=== PATIENT | male | born 1950 | race African-American/Black ===

== ENCOUNTER 2021-05-22 05:48 | Day surgery (SDC) | payer MEDICARE ==
--- NOTE | 2021-05-17 10:27 | Anesthesia Consultation ---
Anesthesia Consult and Med Hx Date of service: 05/22/21 - Airway Anesthetic Teeth Evaluation: Dentures, Edentulous ROM Head & Neck: Adequate Mental/Hyoid Distance: Adequate Mallampati Class: Class II Intubation Access Assessment: Good - Pre-Operative Health Status ASA Pre-Surgery Classification: ASA2 Proposed Anesthetic Plan: General - Pulmonary Hx Smoking: No Hx Respiratory Symptoms: No Hx Sleep Apnea: No (JAYNA PRE SCREEN LOW RISK) - Cardiovascular System Hx Hypertension: No - Central Nervous System Hx Back Pain: Yes (NECK PAIN) Hx Psychiatric Problems: No - Hematic Hx Anemia: No - Other Systems Hx Cancer: No Hx Obesity: No - Additional Comments Anesthesia Medical History Comments: Nepali speaking only; used language line
[2021-05-17 10:38] LABS: Hematocrit 44.5 % (35.5-45.6); Hemoglobin 14.4 gm/dl (11.8-15.2); Mean Corpuscular HGB Conc 32 % (32-34); Mean Corpuscular Volume 91 fl (84-94); Platelet Count 252 K/mm3 (140-440); Red Blood Count 4.88 M/mm3 (3.65-5.03); Red Cell Distribution Width 13.2 % (13.2-15.2)
[2021-05-17 11:00] LABS: BUN/Creatinine Ratio 35; Blood Urea Nitrogen 21 mg/dL (9-20); Hemolysis Index 6
--- NOTE | 2021-05-18 09:03 | Electrocardiograph Report ---
[facility] Test Date: 2021-05-17 Test Time: 09:57:16 Pat Name: EVELIA PRAJAPATI Department: Room: Gender: M Insole Tacker: CARYN : 1950 Requested By: NALDO VILLARREAL Order Number: [id number] Reading MD: Evert Casarez Measurements Intervals [place] Rate: 71 P: 67 TN: 156 QRS: 29 QRSD: 96 T: 68 QT: 397 QTc: 432 Interpretive Statements Sinus rhythm Probable left atrial enlargement No previous ECG available for comparison Electronically Signed On 05-18-2021 9:02:56 EST by Evert Casarez
[~2021-05-22 05:48] MED LIST: GABAPENTIN 100 MG CAP PO SCH
[2021-05-22] MEDS ORDERED: CELECOXIB 200 MG CAP PO NR (06:00)
[2021-05-22] MEDS ORDERED: MIDAZOLAM 2 MG/2 ML INJ IV NR (06:00)
[2021-05-22] MEDS ORDERED: GABAPENTIN 300 MG CAP PO NR ×2 (06:00)
[2021-05-22] MEDS ORDERED: LACTATED RINGERS 1,000 ML IV SCH (06:00)
[2021-05-22] MEDS ORDERED: ACETAMINOPHEN 325 MG TAB PO SCH (06:00)
[2021-05-22] MEDS ORDERED: GABAPENTIN 100 MG CAP PO SCH (06:00)
[2021-05-22] MEDS ORDERED: MAGNESIUM OXIDE 400 MG TAB PO ONE (06:00)
[2021-05-22] MEDS ORDERED: BACTERIOSTATIC SODIUM CHLORIDE 0.9% 30 ML VIAL INFILTRATI ONE (06:27)
[2021-05-22] MEDS ORDERED: LIDOCAINE (1%) 10 MG/1 ML VIAL 20 ML MDV ONE (07:15)
[2021-05-22] MEDS ORDERED: BUPIVACAINE/PF (0.5%) 5 MG/1 ML 30 ML VIAL INFILTRATI ONE ×2 (07:15→08:43)
[2021-05-22] MEDS ORDERED: propofoL 200 MG/20 ML VIAL IV ONE (07:17)
[2021-05-22] MEDS ORDERED: ROCURONIUM 50 MG/5 ML INJ IV ONE (07:17)
[2021-05-22] MEDS ORDERED: LIDOCAINE MPF (2%) 20 MG/1 ML VIAL 5 ML ONE (07:17)
[2021-05-22] MEDS ORDERED: ONDANSETRON 4 MG/2 ML INJ ONE (07:17)
[2021-05-22] MEDS ORDERED: fentaNYL 100 MCG/2 ML INJ ONE (07:17)
[2021-05-22] MEDS ORDERED: KETOROLAC 30 MG/1 ML INJ ONE (07:18)
[2021-05-22] MEDS ORDERED: KETAMINE/STERILE WATER 50 MG/ML SYRINGE ONE (07:18)
[2021-05-22] MEDS ORDERED: dexAMETHasone 20 MG/5 ML VIAL ONE (07:18)
--- NOTE | 2021-05-22 07:34 | Anesthesia Day of Surgery ---
Anesthesia Day of Surgery - Day of Surgery Patient Examined: Yes Patient H&P Reviewed: Yes Patient is NPO: Yes
[2021-05-22] MEDS ORDERED: MIDAZOLAM 2 MG/2 ML INJ ONE (07:48)
[2021-05-22] MEDS ORDERED: HYDROcodone/ACETAMINOPHEN 5-325 MG TAB PO PRN (08:00)
[2021-05-22] MEDS ORDERED: ceFAZolin/Water 2 GM/20 ML 2 GM/20 ML SYRINGE IV NR (08:00)
[2021-05-22] MEDS ORDERED: ONDANSETRON 4 MG/2 ML INJ IV PRN (08:00)
[2021-05-22] MEDS ORDERED: HYDROmorphone 1 MG/1 ML INJ IV PRN (08:00)
[2021-05-22] MEDS ORDERED: ePHEDrine SULFATE 50 MG/1 ML INJ ONE (08:06)
[2021-05-22] MEDS ORDERED: LIDOCAINE (1%) 10 MG/1 ML VIAL 20 ML MDV INFILTRATI ONE (08:44)
[2021-05-22] MEDS ORDERED: SODIUM CHLORIDE 0.9% IRR 1,500 ML BOTTLE IR ONE (08:44)
--- NOTE | 2021-05-22 10:40 | Short Stay Summary ---
Short Stay Documentation Date of service: 05/22/21 - History Principal diagnosis: bilateral inguinal hernia H&P: obtained from office - Allergies and Medications Current Medications: Allergies No Known Allergies Allergy (Verified 05/15/21 14:07) Home Medications Medication Instructions Recorded Confirmed Last Taken Type Ascorbic Acid [Vitamin C] 1,000 mg PO DAILY 05/15/21 05/15/21 05/21/21 History Cholecalciferol (Vitamin D3) 2,000 unit PO QDAY 05/15/21 05/15/21 05/21/21 History [Vitamin D3 2,000 UNIT CAP] [place]-3 Fatty Acids/Fish Oil [Fish 1 each PO DAILY 05/15/21 05/15/21 05/21/21 H istory Oil 1,000 mg Capsule] Tamsulosin [Flomax] 0.4 mg PO QDAY 05/15/21 05/15/21 05/21/21 History Vitamin B Complex [Balanced B-50] 1 each PO DAILY 05/15/21 05/15/21 05/21/21 History Active Medications Acetaminophen (Acetaminophen 325 Mg Tab) 650 mg PO ONCE GLENNY Stop: 05/22/21 23:01 Last Admin: 05/22/21 06:57 Dose: 650 mg Documented by: Hydrocodone Bitart/Acetaminophen (Hydrocodone/Acetaminophen 5-325 Mg Tab) 2 each PO ONCE PRN PRN Reason: Pain, Moderate (4-6) Stop: 05/22/21 18:00 Gabapentin (Gabapentin 100 Mg Cap) 100 mg PO PREOP GLENNY Stop: 05/22/21 23:59 Last Admin: 05/22/21 06:57 Dose: 100 mg Documented by: Hydromorphone HCl (Hydromorphone 1 Mg/1 Ml Inj) 0.5 mg IV Q10MIN PRN PRN Reason: Pain , Severe (7-10) Stop: 05/22/21 17:00 Cefazolin Sodium (Ancef/Sterile Water 2 Gm/20 Ml) 2 gm in 20 mls @ 80 mls/hr IV PREOP NR; Protocol Stop: 05/22/21 23:59 Lactated Ringer's (Lactated Ringers) 1,000 mls @ 100 mls/hr IV DIRECT GLENNY Last Admin: 05/22/21 06:50 Dose: 100 mls/hr Documented by: Ondansetron HCl (Ondansetron 4 Mg/2 Ml Inj) 4 mg IV ONCE PRN PRN Reason: Nausea And Vomiting Stop: 05/22/21 17:00 - Brief post op/procedure progress note Date of procedure: 05/22/21 Pre-op diagnosis: bilateral inguinal hernia Post-op diagnosis: same Procedure: robotic assisted bilateral inguinal hernia repair with mesh, b/l ilioinguinal nerve block Anesthesia: GETA, local, other (b/l ilioinguinal nerve block) Findings: Large direct bilateral inguinal hernias - left side containing unobstructed small bowel which was easily reduced Surgeon: NALDO VILLARREAL Planer Setter: ARIELLA FERREIRA Estimated blood loss: minimal Pathology: none Condition: stable - Hospital course Hospital course: Pt observed in PACU and discharged to home in stable condition - Disposition Condition at discharge: Good Disposition: 01 HOME / SELF CARE / HOMELESS Short Stay Discharge Plan Activity: other (NO HEAVY LIFTING OF GREATER THAN 15 LBS FOR NEXT 6 WEEKS) Diet: regular Wound: open to air, per your surgeon's advice Additional Instructions: SEE PRINTED DISCHARGE INSTRUCTIONS Follow up with: ECHO EPSTEIN MD [Primary Care Provider] - 7 Days NALDO VILLARREAL DO [Staff Physician] - 14 Days Prescriptions: Gabapentin 200 mg PO BID #6 capsule Ibuprofen [Motrin 800 MG tab] 800 mg PO Q8HR PRN #30 tablet PRN Reason: Pain, Moderate (4-6) HYDROcodone/APAP 5-325 [[place] 5-325 mg TAB] 1 each PO Q6H PRN #20 tablet PRN Reason: Pain , Severe (7-10)
[2021-05-22] MEDS ORDERED: TAMSULOSIN 0.4 MG CAP PO SCH (13:00)
--- NOTE | 2021-05-22 13:00 | Post Anesthesia Evaluation ---
- Post Anesthesia Evaluation Patient Participated: Yes Airway Patent: Yes Stable Respiratory Function: Yes Nausea/Vomiting: No Temp > 96.8F: Yes Pain Manageable: Yes Adequeate Hydration: Yes Anesthesia Complications: No
--- NOTE | 2021-05-22 14:34 | Operative Report ---
Operative Report Operative Report: Date of procedure: 05/22/21 Pre-op diagnosis: bilateral inguinal hernia Post-op diagnosis: same Procedure: robotic assisted bilateral inguinal hernia repair with mesh, b/l ilioinguinal nerve block Anesthesia: GETA, local, other (b/l ilioinguinal nerve block) Findings: Large direct bilateral inguinal hernias - left side containing unobstructed small bowel which was easily reduced Surgeon: NALDO VILLARREAL Research Mechanic: ARIELLA FERREIRA Estimated blood loss: minimal Pathology: none Condition: stable Hospital course: Pt observed in PACU and discharged to home in stable condition HPI and indication: Patient is a 70-year-old male who was referred to the surgery clinic for a bulge in the right groin. He was found to have a bilateral reducible inguinal hernias on physical exam. He had a history of primary open right inguinal hernia repair 50 years prior. It was recommended that the hernias be repaired. I discussed all risk, benefits, alternatives to repair with the patient and questions were answered using the Isoflux repairer controller tester line. Consent obtained for robotic assisted bilateral inguinal hernia repair with mesh, possible open. Procedure in detail: Patient was identified in the preoperative area, take back to operating room placed on operative table in supine position. After anesthesia was induced both arms were tucked and all bony prominences padded appropriately. A Mims catheter was sterilely placed by the circulating nurse. The abdomen and b/l groins were then prepped and draped in usual sterile fashion and a timeout performed. Local anesthetic was infiltrated to skin at the intended incision sites. A supraumbilical incision was made through which a Veress needle was inserted. Veress needle positioning was confirmed using saline drop test and the abdomen insufflated to 15 mmHg. Once the abdomen was insufflated, the Veress needle was removed and a 5 mm Optiview trocar was placed as incision. The abdomen is inspected there was no underlying injury to any of the abdominal structures. Patient was placed in Trendelenburg and the pelvis examined. There were bilateral inguinal hernias. There was unobstructed small bowel in the left inguinal hernia which was gently reduced with external pressure. At this point, an 8 mm right upper quadrant and left upper quadrant robotic trocars were then placed under direct visualization. The 5 mm supraumbilical trocar was removed and replaced with a 12 mm balloon trocar under direct visualization. A Ray-Waldo was placed into the abdomen. The robot was then docked. A fenestrated bipolar was placed into arm #2 and a monopolar scissor in arm #1. The surgeon was then transferred to the console. First, I created a left sided preperitoneal flap. The peritoneum was scored approximately 5 to 6 cm from the hernia defect. The peritoneum was then incised from the midline to the ASIS. The preperitoneal flap was then developed in an avascular plane. I first defined the medial margin by dissecting to the pubic tubercle. The pubic tubercle was cleared of overlying fatty tissue using blunt dissection. I then created the lateral margin in a similar fashion. Great care was taken to avoid injury to any nerves. There was a direct inguinal hernia and the hernia sac was gently reduced using blunt dissection and transecting cremasteric fibers with electrocautery. During the dissection, the cord structures were identified and protected. The cord structures and vas deferens were visualized throughout the entire dissection. Once the hernia sac was completely reduced, the peritoneal flap was checked for hemostasis. Any additional cremasteric fibers that were were tenting up the peritoneum were divided. Hemostasis was carefully ensured. The right direct inguinal hernia was dissected in the same fashion as the left. The hernia sac was very thin and multiple defects were created during reduction. The peritoneal flaps were connected and one large flap created. The left-sided hernia was repaired with a left large 3D max mesh on the right was repaired with a large right 3D max mesh. The mesh was overlapped at the medial border and sutured to the pubic tubercle using 2-0 Vicryl interrupted stitches. The lateral portions of the mesh were sutured to the anterior lateral abdominal wall using 2-0 Vicryl interrupted sutures. The meshes was seen to lay flat in the pocket with excellent coverage. An 18F angiocath was inserted through the abdominal wall into the lateral portion of the right flap. The peritoneum was then reapproximated using 3-0 running V-Loc stitch x2. The defects in the peritoneum were approximated using 3-0 vloc running stitch. The entirety of the mesh was covered with peritoneum. The robot was then undocked and the surgeon scrubbed back in. The remainder of the case was performed laparoscopically. All sharp materials along with a Ray-Waldo were removed from the abdomen under direct visualization. The 12 mm port was removed and the fascia closed using interrupted 0 Vicryl stitch. The remaining ports were removed and any scrotal air evacuated through the angiocath. Skin incisions were once again infiltrated with local anesthetic. Bilateral ilioinguinal nerve blocks was also performed with 5 cc of local anesthetic each. The skin incisions were approximated with 4-0 Monocryl subcuticular stitches and skin glue. At the end of the case all sponge, instrument, sharp counts were correct x2. Patient was awoken from anesthesia and Mims catheter removed. Both testicles were palpated in the scrotum in anatomic position. The patient was taken to PACU in stable condition.
[2021-05-22 17:08] VITALS: BP 130/71
== END 2021-05-22 05:49 | disposition home or self-care (01) ==
LOC: OR 05:48
PROVIDERS: ATTEND Surgery
DX: K40.20 Bilateral inguinal hernia, without obstruction or gangrene, not specified as recurrent (principal); N40.0 Benign prostatic hyperplasia without lower urinary tract symptoms; Z79.899 Other long term (current) drug therapy; Z98.890 Other specified postprocedural states; Z20.822 Contact with and (suspected) exposure to COVID-19
CPT/HCPCS: 36415; 49650; 80048; 85027; 93005; C1781; J0690; J1100; J1885; J2250; J2405; J2704; J3010; J3490; J7120; U0003

== ENCOUNTER 2021-07-02 09:52 | Outpatient (CLI) | payer MEDICARE ==
--- NOTE | 2021-07-02 13:41 | Vascular Lab Report ---
DUPLEX DOPPLER LOWER EXTREMITY VEINS, BILATERAL INDICATION: R22.43 LOCALIZED SWELLING MASS/LUMP LOWER LIMB BILATERAL. TECHNIQUE: Duplex doppler imaging was performed through the veins of both lower extremities using ve nous compression and other maneuvers. COMPARISON: No relevant prior imaging study available. FINDINGS: Right Common femoral vein: Negative. Right Superficial femoral vein: Negative. Right Popliteal vein: Negative. Right Calf veins: Negative. Left Common femoral vein: Negative. Left Superficial femoral vein: Negative. Left Popliteal vein: Negative. Left Calf veins: Negative. Additional findings: None. IMPRESSION: No sonographic evidence for DVT in either lower extremity. Signer Name: Eduardo Sarmiento Jr, MD Signed: 07/02/2021 1:37 PM Workstation Name: [id number]
== END 2021-07-02 09:53 | disposition home or self-care (01) ==
LOC: VAS 09:52
PROVIDERS: ATTEND Surgery
DX: R22.43 Localized swelling, mass and lump, lower limb, bilateral (principal)
CPT/HCPCS: 93970

== ENCOUNTER 2021-07-04 11:47 | Outpatient (CLI) | payer MEDICARE ==
--- NOTE | 2021-07-04 13:35 | Cat Scan Report ---
CT ABDOMEN AND PELVIS WITHOUT CONTRAST HISTORY: INTRA-ABDOMINAL PELVIC SWELLING. COMPARISON: None. TECHNIQUE: Helical CT images of the abdomen and pelvis were obtained without administration of intrav enous contrast. Sagittal and coronal reformatted images were reviewed. All CT scans at this location are performed using CT dose reduction for ALARA by means of automated exposure control. FINDINGS: Abdomen/pelvis: The bladder is markedly distended. No bladder filling defect or wall abnormality is detected. The prostate gland is enlarged measuring up to 6.2 cm in diameter. Bladder outlet obstructi on is suspected. There is mild to moderate bilateral hydronephrosis. No focal renal lesion or nephrol ithiasis. The liver, biliary system, pancreas, spleen, adrenal glands and bowel loops are unremarkable on nonco ntrast CT. The aorta is ectatic with scattered calcifications. No aneurysm. No adenopathy, free fluid or free air. There are rounded fluid collections in both inguinal regions measuring up to 4 cm in diameter. This a ppears to represent postoperative seromas from pre-peritoneal hernia repairs. Lungs/bones: The lung bases are clear. Normal heart size. There is moderate levocurvature of the lum bar spine with multilevel degenerative changes. IMPRESSION: Bladder outlet obstruction with bilateral hydronephrosis. This is likely secondary to an enlarged pro state gland. Bilateral inguinal seromas as described above. These findings were discussed with Dr. Martin at 1320 hours Eastern standard time. Signer Name: Eduardo Sarmiento Jr, MD Signed: 07/04/2021 1:31 PM Workstation Name: [id number]
== END 2021-07-04 11:48 | disposition home or self-care (01) ==
LOC: CT 11:47
PROVIDERS: ATTEND Surgery
DX: N40.0 Benign prostatic hyperplasia without lower urinary tract symptoms (principal); R19.00 Intra-abdominal and pelvic swelling, mass and lump, unspecified site; N13.30 Unspecified hydronephrosis; M47.816 Spondylosis without myelopathy or radiculopathy, lumbar region
CPT/HCPCS: 74176